=== PATIENT | female | born 1965 | race Caucasian/White ===

== ENCOUNTER 2016-11-29 15:49 | Emergency (ER) | payer BC ==
[2016-11-29 16:01] VITALS: BP 128/75; PULSE 78; TEMP 98.1; BMI 33.8
[2016-11-29] MEDS ORDERED: ACETAMINOPHEN 325 MG TABLET (FP) PO ONE (16:02)
[2016-11-29] MEDS ORDERED: diazePAM 5 MG TABLET PO ONE (16:02)
[2016-11-29] MEDS ORDERED: KETOROLAC TROMETHAMINE 30 MG/1 ML VIAL IM ONE (16:02)
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
[2016-11-29] MEDS ORDERED: ACETAMINOPHEN 325 MG TABLET (FP) ONE (16:19)
[2016-11-29] MEDS ORDERED: KETOROLAC TROMETHAMINE 30 MG/1 ML VIAL ONE (16:19)
[2016-11-29] MEDS ORDERED: diazePAM 5 MG TABLET ONE (16:20)
== END 2016-11-29 17:00 | disposition home or self-care (01) ==
LOC: FER 15:49
PROC: 3E0233Z Introduction of Anti-inflammatory into Muscle, Percutaneous Approach (ICD-10-PCS; principal; 2016-11-29)
DX: M54.30 Sciatica, unspecified side (principal)
CPT/HCPCS: 72070-TC; 72100-TC; 99283-25

== ENCOUNTER 2018-05-15 17:22 | Emergency (ER) | payer OTHER, BC ==
--- NOTE | 2018-05-15 17:33 | PDOC ---
Attending Attestation - Resident Resident Name: Jose Xavier - ED Attending Attestation I have performed the following: I have examined & evaluated the patient, The case was reviewed & discussed with the resident, I agree w/resident's findings & plan, Exceptions are as noted - HPI HPI: 05/15/18 17:31 53y F presents with L knee pain since tuesday. 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 Notes immediatly discomfort onher L knee when she planted her foot down. Pain was toleratable enough that she was able to finish her shift and also worked on tuesday. She presents today due to persistent pain. She is taking tylenol with moderate releive. no associated numbness/tingling/ weakness. no other injuries or falls. denies any chronic problems/pain with her knee. exam: general: no acute distress L knee: mild diffuse ttp, no focal bony ttp, normal active and passive ROM without discomfort. sensation intact ands ymmetric throughout. doubt fx/dislcocation possibel strain supportive care at home discussed xray with patient, but feel that at this point it is not high yeild will have pt rest, pmd/ortho fu return precautions were discussed - Physicial Exam PE: 05/18/18 00:17 see above - Medical Decision Making 05/18/18 00:17 see above
[2018-05-15] MEDS ORDERED: ACETAMINOPHEN 325 MG TABLET (FP) PO ONE (17:40)
--- NOTE | 2018-05-15 17:40 | PDOC ---
History of Present Illness - General Chief Complaint: Pain, Acute Stated Complaint: LEFT KNEE PAIN Time Seen by Provider: 05/15/18 17:23 History Source: Patient Exam Limitations: No Limitations - History of Present Illness Initial Comments: 05/15/18 17:33 Patient is a 53F with no significant medical history here today complaining L knee pain. She states she hurt her knee two days ago after coming to a sudden stop at work. Patient states that she was able to walk afterwards. Denies trauma. Denies fevers, chills, nausea, vomiting. Past History - Past Medical History Allergies/Adverse Reactions: Allergies Allergy/AdvReac Type Severity Reaction Status Date / Time Penicillins Allergy Intermediate Rash Verified 05/15/18 17:22 Home Medications: Ambulatory Orders NK [No Known Home Medication] 05/15/18 COPD: No GI Disorders: Yes (GASTRIC ULCER) - Immunization History Td Vaccination: Yes - Suicide/Smoking/Psychosocial Hx Smoking Status: No Smoking History: Never smoked Have you smoked in the past 12 months: No Number of Cigarettes Smoked Daily: 0 Hx Alcohol Use: No Drug/Substance Use Hx: No Substance Use Type: None Review of Systems - Review of Systems Able to Perform ROS?: Yes Comments:: 05/15/18 17:41 GENERAL/CONSTITUTIONAL: No fever or chills. No weakness. CARDIOVASCULAR: No chest pain or shortness of breath GASTROINTESTINAL: No nausea, vomiting, diarrhea or constipation. MUSCULOSKELETAL: +L knee pain. No neck or back pain. SKIN: No rash NEUROLOGIC: No headache, vertigo, loss of consciousness, or change in strength/ sensation. ALLERGIC/IMMUNOLOGIC: No hives or skin allergy. *Physical Exam - Vital Signs Last Vital Signs Temp Pulse Resp BP Pulse Ox 97.8 F 63 17 124/78 99 05/15/18 17:22 05/15/18 17:22 05/15/18 17:22 05/15/18 17:22 05/15/18 17:22 - Physical Exam Comments: 05/15/18 17:42 GENERAL: Awake, alert, and fully oriented, in no acute distress L KNEE: Neurovascularly intact, mildly tender along joint space medial>lateral, normal ROM, nontender patella, stable joint, negative drawer HEAD: No signs of trauma, normocephalic, atraumatic EYES: PERRLA, EOMI, sclera anicteric, conjunctiva clear LUNGS: No distress, speaks full sentences, clear to auscultation bilaterally HEART: Regular rate and rhythm, normal S1 and S2, no murmurs, rubs or gallops, peripheral pulses normal and equal bilaterally. ABDOMEN: Soft, nontender, normoactive bowel sounds. No guarding, no rebound. No masses EXTREMITIES: Normal inspection, Normal range of motion, no edema. No clubbing or cyanosis. NEUROLOGICAL: Cranial nerves II through XII grossly intact. Normal speech, normal gait, no focal sensorimotor deficits SKIN: Warm, Dry, normal turgor, no rashes or lesions noted. Medical Decision Making - Medical Decision Making 05/15/18 17:43 Patient is 53F here today with knee pain. No suspicion of a fracture. Will treat with tylenol given history of gastric ulcer. Does not require x-ray at this time. *DC/Admit/Observation/Transfer Diagnosis at time of Disposition: Knee pain - Discharge Dispostion Disposition: HOME Condition at time of disposition: Good Decision to Admit order: No - Referrals Referrals: Soraida Abbasi [Primary Care Provider] - Micah Bustos MD [Staff Physician] - - Patient Instructions Printed Discharge Instructions: DI for Knee Pain Additional Instructions: Please follow up with the orthopedic doctor below for further follow up. Please return if you have any increasing pain, fever or spreading redness. - Post Discharge Activity Forms/Work/School Notes: Back to Work
[2018-05-15] MEDS ORDERED: ACETAMINOPHEN 325 MG TABLET (FP) ONE (17:42)
[2018-05-15 17:53] VITALS: BP 124/78; PULSE 63; TEMP 97.8; BMI 32.0
== END 2018-05-15 17:59 | disposition home or self-care (01) ==
LOC: FER 17:22 → SUPCPDRO 17:22 → FER 17:59
DX: M25.562 Pain in left knee (principal)
CPT/HCPCS: 99281-25